=== PATIENT | female | born 1995 | race Two or more races ===

== ENCOUNTER 2021-01-07 16:50 | Emergency (ER) | payer OTHER ==
[~2021-01-07] VITALS: Ht 160 cm; Wt 85.3 kg
== END 2021-01-07 19:48 | disposition home or self-care (01) ==
LOC: ER 16:50
DX: O26.851 Spotting complicating pregnancy, first trimester (principal); Z3A.01 Less than 8 weeks gestation of pregnancy

== ENCOUNTER 2021-04-03 13:06 | Outpatient (CLI) | payer OTHER | END 2021-04-03 14:30 | disposition home or self-care (01) | LOC: PRENATAL 13:06 | PROVIDERS: ATTEND Obstetrics & Gynecology Maternal & Fetal Medicine | DX: O35.0XX1 Maternal care for (suspected) central nervous system malformation in fetus, fetus 1 (principal); O35.3XX1 Maternal care for (suspected) damage to fetus from viral disease in mother, fetus 1; O98.512 Other viral diseases complicating pregnancy, second trimester; Z36.89 Encounter for other specified antenatal screening; Z3A.20 20 weeks gestation of pregnancy ==

== ENCOUNTER 2021-04-23 08:14 | Emergency (ER) | payer OTHER ==
[~2021-04-23] VITALS: Ht 162.6 cm; Wt 87.5 kg
[2021-04-23] MEDS ORDERED: ZITHROMAX TRI-500 MG PO (11:05)
== END 2021-04-23 11:20 | disposition home or self-care (01) ==
LOC: ER 08:14
DX: R07.0 Pain in throat (principal); Z20.822 Contact with and (suspected) exposure to COVID-19; Z3A.23 23 weeks gestation of pregnancy

== ENCOUNTER 2021-07-15 11:22 | Outpatient (CLI) | payer OTHER ==
[~2021-07-15 11:22] MED LIST: ZITHROMAX TRI-500 MG PO
== END 2021-07-15 12:24 | disposition home or self-care (01) ==
LOC: PRENATAL 11:22
PROVIDERS: ATTEND Obstetrics & Gynecology Maternal & Fetal Medicine
DX: O26.849 Uterine size-date discrepancy, unspecified trimester (principal); O28.1 Abnormal biochemical finding on antenatal screening of mother

== ENCOUNTER 2021-08-18 05:24 | Inpatient (IN) | payer OTHER ==
[~2021-08-18] VITALS: Ht 160 cm; Wt 98.0 kg
[2021-08-18] MEDS ORDERED: PRENATAL CAPLE1 EAC1 PO (06:32)
== END 2021-08-21 13:51 | disposition home or self-care (01) | DRG 807 ==
LOC: LDR 05:24 → OB/GYN 05:24 → LDR 05:26 → OB/GYN 08-19 16:21
PROVIDERS: ADMIT Obstetrics & Gynecology; ATTEND Obstetrics & Gynecology
PROC: 4A1HXCZ Monitoring of Products of Conception, Cardiac Rate, External Approach (ICD-10-PCS; 2021-08-18)
PROC: 10E0XZZ Delivery of Products of Conception, External Approach (ICD-10-PCS; principal; 2021-08-19)
PROC: 0KQM0ZZ Repair Perineum Muscle, Open Approach (ICD-10-PCS; 2021-08-19)
PROC: 3E0P7VZ Introduction of Hormone into Female Reproductive, Via Natural or Artificial Opening (ICD-10-PCS; 2021-08-19)
PROC: 0UQG7ZZ Repair Vagina, Via Natural or Artificial Opening (ICD-10-PCS; 2021-08-19)
DX: O70.1 Second degree perineal laceration during delivery (principal); Z37.0 Single live birth; Z3A.40 40 weeks gestation of pregnancy; Z20.822 Contact with and (suspected) exposure to COVID-19